=== PATIENT | female | born 1955 | race Caucasian/White ===

== ENCOUNTER 2019-06-01 15:08 | Outpatient (CLI) | payer OTHER, SELFPAY ==
--- NOTE | ~2019-06-01 | XR_ITS ---
EXAMINATION: XR hand BI arthritis min 3V DATE: 06/01/2019 15:37 INDICATION: Unspecified osteoarthritis, unspecified site. TECHNIQUE: 4 views of right hand and 4 views of left hand on a total of 7 radiographs were obtained. COMPARISON: None. FINDINGS: RIGHT HAND: Bone alignment is normal. No fracture. There is mild osteoarthritis of first and second m etacarpophalangeal joints and first interphalangeal joint and severe osteoarthritis of second and thi rd distal interphalangeal joints. LEFT HAND: Bone alignment is normal. No fracture. There is mild osteoarthritis of first interphalange al joint and second, third, and fifth distal interphalangeal joints. IMPRESSION: 1. Polyarticular osteoarthritis. Reviewed, dictated and finalized at location A. MOLDER
[2019-06-01 16:04] LABS: Add Urine Microscopic? NO; Appearance Urine Clear (Clear); Bilirubin Urine Negative (Negative); Blood Urine Negative (Negative); Color Urine Colorless (Yellow); Glucose Urine UA Negative (Negative); Ketones Urine Negative (Negative); Leukocyte Esterase Ur Negative LEU/UL (Negative); Mucus Urine Rare /lpf; Nitrate Urine Negative (Negative); Protein Urine Negative (Negative); RBC Urine 0-2 /hpf (0-2); Specific Grav Ur 1.005 (1.001-1.035); Urobilinogen Urine Negative mg/dL (<2.0); WBC Urine 0-3 /hpf
[2019-06-01 16:13] LABS: CRP < 0.5 mg/dL (<1.0)
[2019-06-01 16:17] LABS: Erythrocyte Sedimentation Rate 15 mm/hr (0-20)
[2019-06-01 16:52] LABS: Complement C3 124 mg/dL (88-165); Rheumatoid Factor 44.1 IU/ML (<12)
[2019-06-03 11:08] LABS: ANCA Screen Negative (Negative)
[2019-06-03 11:50] LABS: Angiotensin Converting Enzyme 57 U/L (9-67)
[2019-06-03 22:09] LABS: HLA B27 Negative (Negative)
[2019-06-04 04:51] LABS: Lupus dRVVT 1:1 Mix Interpreta Not Indicated; Lupus dRVVT Screen 26 sec (<=45); PTT-LA Screen 28 sec (<=40)
[2019-06-04 11:18] LABS: Anti Cyclic Citrullinated Pept <16 Units (<20)
[2019-06-05 10:01] LABS: SS-A >8.0; SS-B 7.6
[2019-06-11 10:33] LABS: SM Antibody <1.0 AI; SM/RNP Antibody <1.0 AI
== END 2019-06-01 15:09 | disposition home or self-care (01) ==
LOC: ANHIMG 15:16
PROVIDERS: PCP Nurse Practitioner; Visit Provider Internal Medicine
DX: M19.90 Unspecified osteoarthritis, unspecified site (principal); M35.9 Systemic involvement of connective tissue, unspecified; M19.041 Primary osteoarthritis, right hand; M19.042 Primary osteoarthritis, left hand
CPT/HCPCS: 36415; 73130; 81003; 82164; 85613; 85652; 85730; 86021; 86140; 86160; 86200; 86225; 86235; 86430; 86812

== ENCOUNTER 2019-10-16 13:57 | Outpatient (CLI) | payer OTHER, SELFPAY ==
--- NOTE | ~2019-10-16 | XR_ITS ---
XR chest 2V DATE: 10/16/2019 14:13 INDICATION: Cough TECHNIQUE: PA and lateral views COMPARISON: None FINDINGS: Normal heart size. No hilar or mediastinal enlargement. No pulmonary infiltrate or consolid ation, pleural effusion or pulmonary vascular congestion or pneumothorax. Diffuse osteopenia. IMPRESSION: No active cardiopulmonary disease Reviewed, dictated and finalized at location B.
[2019-10-16 14:42] LABS: Hematocrit 39.9 % (37.0-47.0); Hemoglobin 12.9 g/dL (12.0-15.0); Mean Corpuscular HGB Conc 32.3 g/dl (32-36); Mean Corpuscular Hemoglobin 29.8 pg (26-34); Mean Corpuscular Volume 92.1 fl (80-100); Mean Platelet Volume 9.8 fl (7.4-10.4); Platelet Count Result 246 k/mm3 (150-375); Red Blood Count 4.33 M/mm3 (4.2-5.4); Red Cell Distribution Width 13.2 % (11.5-14.5); White Blood Count 7.9 K/mm3 (4.5-10.0)
[2019-10-16 14:45] LABS: Add Urine Microscopic? NO; Appearance Urine Clear (Clear); Bilirubin Urine Negative (Negative); Blood Urine Negative (Negative); Color Urine Colorless (Yellow); Glucose Urine UA Negative (Negative); Ketones Urine Negative (Negative); Leukocyte Esterase Ur Negative LEU/UL (Negative); Nitrate Urine Negative (Negative); Protein Urine Negative (Negative); Specific Grav Ur 1.005 (1.001-1.035); Urobilinogen Urine Negative mg/dL (<2.0)
[2019-10-16 14:54] LABS: Alanine Aminotransferase 19 U/L (4-35); Albumin Level 4.7 g/dL (3.5-5.1); Alkaline Phosphatase 100 U/L (38-126); Aspartate Amino Transferase 34 U/L (14-36); Bilirubin,Total 0.3 mg/dL (0.2-1.3); Blood Urea Nitrogen 16 mg/dL (7-17); Calcium 9.3 mg/dL (8.4-10.2); Carbon Dioxide 27 mmol/L (22-30); Chloride 104 mmol/L (98-107); Estimated Glomerular Filt Rate > 60; Glucose 98 mg/dL (65-105); Potassium 4.1 mmol/L (3.4-5.0); Sodium 140 mmol/L (137-145)
[2019-10-16 15:08] LABS: Erythrocyte Sedimentation Rate 19 mm/hr (0-20)
== END 2019-10-16 13:58 | disposition home or self-care (01) ==
LOC: ANHIMG 13:58
PROVIDERS: PCP Nurse Practitioner; Visit Provider Internal Medicine
DX: M35.9 Systemic involvement of connective tissue, unspecified (principal); R05 Cough; M19.90 Unspecified osteoarthritis, unspecified site
CPT/HCPCS: 36415; 71046; 80053; 81003; 85027; 85652